=== PATIENT | male | born 1995 | race African-American/Black ===

== ENCOUNTER 2017-06-28 20:10 | Emergency (ER) | payer SELFPAY ==
[~2017-06-28] VITALS: Ht 167.6 cm; Wt 68.2 kg
[2017-06-28 20:50] VITALS: BP 118/73; PULSE 68; RESP 18; TEMP 99; O2SAT 100
--- NOTE | 2017-06-28 21:59 | PD ---
Physical Exam Date Seen by Provider: Jun 28, 2017 Time Seen by Provider: 20:53 Narrative 3-year-old male presents to the emergency department for evaluation of burning with urination for 2-3 days. He states he also may have testicular swelling, but he states that he is unsure if he does. He denies penile discharge. He states he went to urgent care center and referred him to the emergency department. When asked if the urgent care evaluated him for testicular swelling , he states that they did not examine him. Current pain is 2/10. Mild to moderate severity. Data Data Last Documented VS Vital Signs Date Time Temp Pulse Resp B/P (MAP) Pulse Ox O2 Delivery O2 Flow Rate FiO2 06/28/17 20:50 99.0 68 18 118/73 (88) 100 MDM Supervised Visit with MATTEO: No Narrative Course 21-year-old male presents to the emergency department triaged him burning with urination. Patient was initially seen in triage. He left AGAINST MEDICAL ADVICE before he can be moved to medical bed. Diagnosis Primary Impression: Left against medical advice Disposition: 07 AGAINST MEDICAL ADVICE Heather Sandy Jun 28, 2017 21:59
== END 2017-06-29 01:09 | disposition left against medical advice (07) ==
LOC: NED 20:10
DX: R30.0 Dysuria (principal)
CPT/HCPCS: 99281

== ENCOUNTER 2017-06-29 21:44 | Emergency (ER) | payer SELFPAY | END 2017-06-29 22:25 | disposition left against medical advice (07) | LOC: NED 21:44 | DX: R39.9 Unspecified symptoms and signs involving the genitourinary system (principal); Z53.21 Procedure and treatment not carried out due to patient leaving prior to being seen by health care provider | CPT/HCPCS: 99281 ==